=== PATIENT | male | born 1965 | race Caucasian/White ===

== ENCOUNTER 2019-06-05 21:17 | Observation (INO) ==
[2019-06-06] MEDS ORDERED: Naloxone 0.4 MG/ML INJ IVP PRN (03:26)
--- NOTE | 2019-06-06 03:42 | Internal Med History&Physical ---
Date of Encounter: 06/05/19 Time of Encounter: 23:45 Internal Medicine - H&P: HPI Chief complaint: Seizure-like activity Admitted From: Hospital to Hospital Transfer Plans for Post Hospital Care: Home History of present illness: Mr. Cook is a 54 year old male Patient presented to the hospital from [facility] for seizure-like activity. He was outside wet-sanding his car, his girlfriend had gone out to [facility] on him and the patient had sat down in a chair and was not responding to her. She says that his eyes rolled back into his head, he stopped breathing and had jerking-like motions. This episode lasted about 1-2 minutes, however she is not exactly sure how long the episode lasted. She was able to call 911, and after slapping the patient in the chest he eventually recovered. The patient does not remember the episode, and afterwards he was slightly confused. He has never had an episode like this before. He denies exposure to chemicals, and was outside in a covered area and was drinking fluids. He is otherwise healthy and has no history of seizures. [facility] vital signs: Blood pressure 149/90, temperature 98.9, pulse 96, history 18, O2 saturation 94% on room air. Labs obtained from [facility]: CBC: White count 11.19, hemoglobin 16.0, hematocrit 46.1, platelets 257. BMP: Sodium 140, potassium 3.7, chloride 107, bicarbonate 25, BUN 8, creatinine 1.13, glucose 99 LFTs: AST 24, ALT 36, alkaline phosphatase 70, total bilirubin 0.6 Lipase 77 CK 450 Trop: undetectable Magnesium 2.3 TSH 1.410 INR 1.05 Acetaminophen level undetectable Alcohol level undetectable Salicylate level 3.[address]: Negative CT scan of the brain EKG: Sinus rhythm, rate 88, QTC 447 ms, no ST changes Patient was transferred to [facility] for further management and neurology evaluation. Upon my assessment, patient is resting comfortably in hospital bed in no acute distress his girlfriend is at bedside. He denies chest pain, abdominal pain, nausea, vomiting, diarrhea and constipation. He does not take any medications regularly. He is otherwise healthy. Earlier in the day the girlfriend states that the patient was feeling lightheaded and was dry heaving. She went inside to get a blood pressure cuff when the episode began. At the [facility] emergency room department he also had some episodes of dry heaving without vomiting. Patient is a smoker, 1 pack per day, denies alcohol and other drug use. He states that his father was diagnosed with epilepsy later in his life. He denies other significant family medical history. He is a full code. Past Med Surg Social Fam HX - Past Medical History Medical history: no medical history - Past Surgical History Surgical History: knee replacement, orthopedic, other, vasectomy Additional surgical history: eye surgery to correct lazy eye - Social History Smoking Status: Current every day smoker Packs per day: 1 Smokeless Tobacco Status: No Alcohol use: none Drug use: none - Family History Father Living Status: Still Living Hx Family Cancer: Yes (prostate) Mother Living Status: Still Living Hx Family Cardiac Disorders: Yes (HTN) Internal Medicine - H&P: Meds Allergy/AdvReac Type Severity Reaction Status Date / Time No Known Allergies Allergy Verified 06/06/19 04:00 All Systems PM: A 10-system review of systems was performed and is negative for pertinent findings except as documented above in the HPI. - Constitutional Vitals: Temp Pulse Resp BP Pulse Ox 97.9 F 63 14 124/75 94 06/06/19 02:13 06/06/19 02:13 06/06/19 02:13 06/06/19 02:13 06/06/19 02:13 General appearance: Present: cooperative, A&O X 3, pleasant, no acute distress, answers questions appropriately Exam: - - Head Head exam: Present: normal inspection - Eye Eye exam: Present: normal appearance. Absent: EOMI Additional comments: Patient appears to have amblyopia in the right eye, but able to move eyes in all directions. Present since - Respiratory Respiratory exam: Present: CTAB. Absent: rales, respiratory distress, rhonchi, wheezes - Cardiovascular Cardiovascular exam: Present: RRR. Absent: diastolic murmur, systolic murmur - GI/Abdominal GI/Abdominal exam: Present: normal bowel sounds, soft. Absent: tenderness - Extremities Exam Extremities exam: Present: warm, radial pulses palpable and symmetrical. Absent: calf tenderness, pedal edema, tenderness - Back Exam Back exam: Absent: CVA tenderness (L), CVA tenderness (R), tenderness, vertebral tenderness - Neurological Exam Neurological exam: Present: alert, CN II-XII intact, oriented X3, no focal deficits, strengths equal and symetr throughout. Absent: altered, motor sensory deficit, pronater drift, facial droop, speech deficit - Skin Skin exam: Present: dry, normal color, warm Internal Med - H&P Results - Labs CBC & Chem 7: 06/06/19 04:03 06/06/19 04:03 - Assessment and Plan (1) Seizure-like activity Current Visit: Yes Status: Acute Assessment and plan: Patient's episode suspicious for possible seizure. He does not have a history of seizures, however his father was diagnosed with epilepsy later in his life. He had been outside working on his car, but denies strenuous activity. He was unresponsive according to the girlfriend but did eventually recover. Questionably postictal after that episode as well. Patient also had elevated CK level at 450, but normal kidney function. The elevated CK level could support some kind of muscle contraction/strain due to a seizure, but unclear at this point. Neurology consult in the morning Cardiac telemetry Echocardiogram in the morning Oxygen supplementation Bedside pulse oximetry Repeat CK level (2) Nausea Current Visit: Yes Status: Acute Assessment and plan: Resolved, patient did have dry heaves but no vomiting. Had further episodes in the emergency department at [facility]. Continue to monitor When necessary Zofran (3) Elevated creatine kinase Current Visit: Yes Status: Acute Assessment and plan: Slightly elevated CK level with normal kidney function. Possibly related to se izure-like activity. Repeat CK level in the morning Continue to monitor (4) Nicotine use disorder Current Visit: Yes Status: Acute Assessment and plan: Patient declines nicotine patch (5) DVT prophylaxis Current Visit: Yes Status: Acute Assessment and plan: SCDs - Time Spent With Patient Total time spent is greater than 50% in coordination of care (as documented) at patient's floor/unit and/or counseling patient:
[2019-06-06 04:25] LABS: Hematocrit 46.2 % (37.5-50.1); Hemoglobin 15.8 g/dL (12.9-16.9); Mean Corpuscular HGB Conc 34.2 g/dL (31.6-35.5); Mean Corpuscular Volume 93.5 fL (83.0-100.0); Mean Platelet Volume 9.7 fL (9.4-12.4); Platelet Count 251 K/mcL (140-400); Red Blood Count 4.94 M/mcL (4.19-5.50); Red Cell Distribution Width 13.2 % (11.5-14.5)
[2019-06-06 04:46] LABS: Alanine Aminotransferase 25 Units/L (7-52); Albumin 3.8 g/dL (3.5-5.7); Albumin/Globulin Ratio 1.5 (1.1-2.2); Alkaline Phosphatase 52 Units/L (34-104); Aspartate Amino Transferase 19 Units/L (13-39); BUN/Creatinine Ratio 11 (6-26); Bilirubin,Total 0.4 mg/dL (0.3-1.0); Blood Urea Nitrogen 9 mg/dL (6-20); Calcium 8.5 mg/dL (8.6-10.3); Carbon Dioxide 25 mEq/L (23-29); Chloride 110 mEq/L (98-107); Globulin 2.5 g/dL (2.4-3.5); Glucose 132 mg/dL (70-105); Magnesium 2.3 mg/dL (1.6-2.6); Osmolality,Calculated 291 (280-300); Potassium 3.6 mEq/L (3.5-5.1); Sodium 140 mEq/L (136-145); Total Protein 6.3 g/dL (6.4-8.9); eGFR For African Americans > 60 (> 60); eGFR For Non-African Americans > 60 (> 60)
[2019-06-06] MEDS ORDERED: Ondansetron 4 MG/2 ML VIAL IVP PRN (05:11)
[2019-06-06] MEDS ORDERED: 0.9 % Sodium Chloride 1,000 ML IVC ONE (05:13)
[2019-06-06 05:30] LABS: Creatine Kinase 420 Units/L (30-223)
[2019-06-06] MEDS ORDERED: *HR* LORazepam 2 MG/ML VIAL IVP PRN (07:55)
[2019-06-06 12:51] VITALS: BP 119/88
--- NOTE | 2019-06-06 14:26 | Neurology - Consult Note ---
Date of Encounter: 06/06/19 Time of Encounter: 10:25 Assessment and Plan (1) Seizure-like activity Current Visit: Yes Status: Acute This patient apparently had a seizure-like activity, and back to his baseline now without any focal motor neurological deficit Does not seem to be any exacerbating factors though it does look like that he was working outside in the heat perhaps could be exacerbated by heat and neck as well as option and is possible that it could be a convulsive syncope and may not be a true epileptic seizure Suggest getting an MRI of the brain to exclude any intracranial abnormality We will get an EEG to look for any interictal abnormalities Would not recommend starting on any anti convulsive medication at this time, as it is not clear that indeed it was epileptic seizures or not, UNLESS we see any abnormality on EEG> If both MRI and EEG is normal patient could be discharged to home with follow-up in neurology Discussed in detail with the patient and the family was present at the bedside agrees with the plan History of Present Illness HPI: Mr. Cook is a 54 year old male transferred from [facility] for seizure-like activity. according to patient He was outside in his car, hot and sweating when his girlfriend found him sitting in chair and not responding, his eyes were rolled back into his head, he stopped breathing and had jerking-like activity lasting about 2 minutes, She called 911, and after few minutes he eventually recovered. The patient does not remember the episode, was confused afterwards and tired and took him a while to get back to his baseline though he did have some dry heaves afterwards and he was afraid that he is been at the moment he was sick to his stomach even before the event that the last thing he remembered he was also sweating profusely, He has never had an episode like this before. He denies exposure to chemicals, and was outside in a covered area and was drinking fluids. He is otherwise healthy and has no history of seizur es. Past Med Surg Social Fam HX - Past Medical History Medical history: no medical history - Past Surgical History Surgical History: knee replacement, orthopedic, other, vasectomy Additional surgical history: eye surgery to correct lazy eye - Social History Smoking Status: Current every day smoker Packs per day: 1 Smokeless Tobacco Status: No Alcohol use: none Drug use: none - Family History Father Living Status: Still Living Hx Family Cancer: Yes (prostate) Mother Living Status: Still Living Hx Family Cardiac Disorders: Yes (HTN) Medications and Allergies Allergy/AdvReac Type Severity Reaction Status Date / Time No Known Allergies Allergy Verified 06/06/19 04:00 All Systems: The remainder of the systems were reviewed and are negative Physical Examination - Vital Signs Vital Signs: Initial Vital Signs Temp Pulse Resp BP Pulse Ox 98.2 F 67 16 119/77 91 06/05/19 23:10 06/05/19 23:10 06/05/19 23:10 06/05/19 23:10 06/05/19 23:10 - Exam Exam: GENERAL: Comfortable in no acute distress HEENT: Normal LUNGS: CTA HEART: RRR, S1 S2 Audible, no murmur EXTREMITIES: No Pedal edema. DETAILED NEUROLOGICAL EXAMINATION: MENTAL STATUS: Oriented to person, place, date and situation. Memory: knows the President, Aware of recent events Recent Memory Intact, Attention span is normal Cranial Nerve Examination: CN - II: Visual Acuity, Field of Vision Normal, Fundus examination: No disk edema, Pupils- size shape reaction to light and accommodation: All normal. CN III, IV, : Extremity of the right eye ( since ) Pupils were reactive, Nodrooping of the eyelids CN V: Sensation over the face to light touch and pinprick all normal. Corneal reflexes not tested, jaw jerk normal. CN VII: No facial asymmetry, no flattening of nasolabial folds, no difficulty in closing the eyes, no loss of forehead wrinkles, no difficulty in eye-closure, frowning raising eyebrows. CNVIII: No significant hearing loss CN IX, X: Uvula centralized not deviated, Gag reflex: Not tested CN X1: Sternocleidomastoid, trapezius, normal or evidence of any weakness. CN X11: No Dysarthria, no wasting or fibrilation f tongue muscles, no deviation, tongue muscle strength normal. Motor examination: No hypertrophy, tone was normal, power grade 0-5 Upper limbs Proximal- No difficulty in lifting the arms above the head. Distal- No weakness in distal muscles On formal testing 5/5 all over Lower limbs On formal testing 5/5 all over Coordination: [id number] normal. Target pursuit normal finger tapping normal, Rapid alternating moment of wrist normal Sensory system: Superficial sensations- Touch normal. Pain- Pinprick, Temperature all normal, Deep sensation normal, Joint position sense normal. Cortical sensation, Tactile discrimination, localization and extinction all normal. Deep tendon reflexes. Symmetrical bilateral, No evidence of Babinski. No sign of meningeal irritation Gait Examination: Deferred - Constitutional General appearance: comfortable Results - Laboratory Findings CBC and BMP: 06/06/19 04:03 06/06/19 04:03 Abnormal lab findings: Abnormal lab results Chloride 110 mEq/L (98-107) H 06/06/19 04:03 Glucose 132 mg/dL (70-105) H 06/06/19 04:03 Calcium 8.5 mg/dL (8.6-10.3) L 06/06/19 04:03 Creatine Kinase 420 Units/L (30-223) H 06/06/19 04:03 Serum Total Protein 6.3 g/dL (6.4-8.9) L 06/06/19 04:03 - Diagnostic Findings Additional findings: Patient is a CT scan at [facility] that was reported as negative Consult Discharge Plan - Plan Referrals: NONE,PCP [Primary Care Provider] -
--- NOTE | 2019-06-06 17:09 | Event Note ---
Date of Encounter: 06/06/19 Time of Encounter: 17:08 Pt signed out AMA. IV removed.
--- NOTE | 2019-06-07 12:07 | EEG/EMG/Oth Biometrics Report ---
EEG Procedure Report Date of procedure: 06/06/19 EEG Procedure: Routine EEG Procedure Note: This is a routine 21 channel digital EEG performed utilizing 10- 20 international electrode placement system. FINDINGS: Patient has a predominant waking background frequency that is average voltage 8 to 10 Hertz alpha activity in the posterior region, normal amplitude symmetrical over the both hemispheres reactive to eyes opening and closing record continued to show alpha activity intermixed with some theta off and on, no abnormal activity recorded, predominantly no evidence of any spike wave discharges or any lateralizing abnormalities, Photic stimulation and hyperventilation did not produce any convulsive response. Intermittent EMG artifacts were noted. Stage II sleep was not achieved. Impression: Normal awake drowsy electroencephalogram. No epileptiform discharges or any other paroxysmal activities noted. ( Please note that normal EEG does not exclude the diagnosis of seizures or epilepsy, clinical correlation is suggested)
== END 2019-06-06 17:01 | disposition left against medical advice (07) ==
LOC: EDBD → 3BNU
PROVIDERS: ADMIT Family Medicine; ATTEND Family Medicine